=== PATIENT | male | born 1945 | race Asian ===

== ENCOUNTER 2017-07-16 12:24 | Inpatient (IN) | payer MEDICARE, MEDICAID ==
--- NOTE | 2017-07-16 12:30 | ED Physician Chart ---
ED Chief Complaint/HPI - Patient Information Date Seen:: 07/16/17 Time Seen:: 12:25 Chief Complaint:: Dyspnea with lightheadedness earlier. History of Present Illness:: Brought in by private auto with his for the above reason. Pt denies any chest pain, BRONSON, or other bodily pain. No palpitation. No fever or cough. No syncope. The entire episode lasted for about 15 minutes. Allergies:: [place]. Vitals:: see Nurse Note. Historian:: Patient, Family Member () Family MD/PCP:: Dr. Guzman LMP:: N/A. Review:: Nurse's Note Reviewed ED Review of Systems - Review of Systems General/Constitutional: No fever, No chills, Weight loss, No weight loss, No weakness, No edema Skin: No rash, No bruising Head: No headache, Light headed (transient) Eyes: No loss of vision, No pain ENT: No nasal drainage, No sore throat Neck: No neck pain, No swelling, No thyromegaly, No mass noted Cardio Vascular: No chest pain, No palpitations, No PND, No orthopnea, No edema Pulmonary: SOB (transient), No cough, No wheezing GI: No nausea, No vomiting, No diarrhea, No pain G/U: No dysuria, No frequency, No hematuria Musculoskeletal: No bone or joint pain Psychiatric: No prior psych history Hematopoietic: No bruising, No lymphadenopathy Allergic/Immuno: No urticaria, No angioedema Neurological: No syncope, No focal symptoms, No weakness, No paresthesia, No headache, No dizziness, No confusion, No vertigo ED Past Medical History - Past Medical History Past Medical History: HTN, Dyslipidemia, Other (cardiomyopathy.) Family History: Heart disease (bother), Diabetes Melitus (father), HTN (father) Social History: Smoker (1/2 ppd. Pt has been informed about health risks associated with tobacco use and has been advised to quit. Pt has been encouraged to enroll in a smoking cessation program. Pt acknowledges understanding.), Alcohol (occasional.), No Drug Use, , Other (lives with .) Employment:: retired. Surgical History: Appendectomy (about 39 y/a.) Psychiatricy History: None Medication: Reviewed Family Medical History - Family Member Mother History Unknown: Yes ED Physical Exam - Physical Examination General/Constitutional: Awake, Well-developed, well-nourished, Alert, No distress, GCS 15, Non-toxic appearing Other Gen/Cons comments:: Breathes comfortably, speaks clearly, and interacts normally. Head: Atraumatic Eyes: Lids, conjuctiva normal, PERRL, EOMI Skin: Nl inspection, No rash, No ecchymosis, Well hydrated, No lymphadenopathy ENMT: External ears, nose nl, Oropharynx nl Neck: Nontender, Full ROM w/o pain, No JVD, No nuchal rigidity, No mass, No stridor Respiratory: Nl effort/Exclusion, Clear to Auscultation, No Wheeze/Rhonchi/Rales Cardio Vascular: RRR, No murmur, gallop, rubs GI: No tenderness/rebounding/guarding, No organomegaly, Normal BS's, Nondistended : No CVA tenderness Extremities: No tenderness or effusion, Full ROM, No edema Neuro/Psych: Alert/oriented (oriented x 3.), Judgement/insight normal, Mood normal, No focal deficits ED Labs/Radiology/EKG Results - Lab Results Results: Laboratory Tests 07/16/17 07/16/17 07/16/17 12:47 12:47 12:47 WBC 10.1 RBC 4.15 Hgb 12.4 Hct 37.9 L MCV 91.3 MCH 29.9 MCHC Differential 32.8 RDW 13.0 Plt Count 200 MPV 7.5 Neutrophils % [employer]IC Band Neutrophils % 3 Lymphocytes % E[employer]IC ENGINE MECHANIC Monocytes % [employer]IC ENGINE MECHANIC Eosinophils % E[employer]IC ENGINE MECHANIC Basophils % [employer] ENGINE MECH[employer]IC Neutrophils (Manual) 82 H Lymphocytes 5 L Monocytes 9 Eosinophils 1 Platelet Estimate ADEQUATE Platelet Morphology GIANT PLATELETS SEEN PT 10.7 INR 1.03 PTT (Actin FS) 24.8 L Sodium 132 L Potassium 4.0 Chloride 97 L Carbon Dioxide 26.6 Anion Gap 12.4 BUN 23 Creatinine 1.6 H Est GFR ( Amer) TNP Est GFR (Non-Af Amer) TNP BUN/Creatinine Ratio 14.4 Glucose 222 H Calcium 9.9 Total Bilirubin 1.2 H AST 13 ALT 11 Alkaline Phosphatase 46 Creatine Kinase 89 Troponin I Total Protein 7.1 Albumin 4.0 L Globulin 3.1 Albumin/Globulin Ratio 1.3 07/16/17 12:47 WBC RBC Hgb Hct MCV MCH MCHC Differential RDW Plt Count MPV Neutrophils % Band Neutrophils % Lymphocytes % Monocytes % Eosinophils % Basophils % Neutrophils (Manual) Lymphocytes Monocytes Eosinophils Platelet Estimate Platelet Morphology PT INR PTT (Actin FS) Sodium Potassium Chloride Carbon Dioxide Anion Gap BUN Creatinine Est GFR ( Amer) Est GFR (Non-Af Amer) BUN/Creatinine Ratio Glucose Calcium Total Bilirubin AST ALT Alkaline Phosphatase Creatine Kinase Troponin I 0.01 Total Protein Albumin Globulin Albumin/Globulin Ratio Urinalysis is pending. - Radiology Results Results: PCXR: Based on my interpretation, no acute cardiopulmonary disease. Official report is pending. - EKG Interpretations EKG Time:: 12:36 Rate & Rhythm: NSR with VR 68 Comments:: NSSTT changes. cardiac monitor: NSR with VR 70. No ectopy. ED Septic Shock - . Is Septic Shock (SBP<90, OR Lactate>4 mmol\L) present?: No ED Reassessment (Disposition) - Reassessment Reassessment:: 1355 Pt has been repeatedly evaluated. Pt remains stable and comfortable. Remaining lab results just became available. EKG, CXR, and lab findings have been reviewed with pt. Management plan has been discussed. 1402 Case was discussed with Dr. Rollins with pertinent H & P, EKG, CXR and available lab findings reviewed. Pt is to be admitted to Telemetry [facility] under his care. Reassessment Condition:: Improved - Diagnosis Diagnosis:: Pre-syncope with transient dyspnea with lightheadedness. Consider cardiac in etiology. Stable and currently asymptomatic. Diabetes mellitus. Mild renal insuffficiency. HTN Dyslipidemia. - Aftercare/Follow up Instructions Aftercare/Follow-Up Instructions:: Counseled pt & family regarding lab results/ diagnosis & need follow up - Patient Disposition Admitted to:: Telemetry Condition at Disposition:: Stable, Improved
[2017-07-16 12:55] LABS: HEMATOCRIT 37.9 % (41.0-60); HEMOGLOBIN 12.4 gm/dL (12-16); MEAN CELL VOLUME 91.3 fl (80-99); MEAN CORPUSCULAR HEMOGLOBIN 29.9 pg (27.0-31.0); MEAN CORPUSCULAR HGB CONC 32.8 pg (28.0-36.0); MEAN PLATELET VOLUME 7.5 fl; PLATELET COUNT 200 Th/cmm (150-400); RED BLOOD COUNT 4.15 Mil/cmm (3.80-5.80); WHITE BLOOD COUNT 10.1 Th/cmm (4.8-10.8)
[2017-07-16 13:11] LABS: INR 1.03 (0.5-1.4); PROTHROMBIN TIME (TEST) 10.7 SECONDS (9.5-11.5)
[2017-07-16 13:14] LABS: ALB/GLOB RATIO 1.3 (1.0-1.8); ALKALINE PHOSPHATASE 46 U/L (34-104); ANION GAP 12.4 (7.0-16.0); BILIRUBIN,TOTAL 1.2 mg/dL (0.3-1.0); BUN - UREA NITROGEN 23 mg/dL (7-25); CALCIUM SERUM 9.9 mg/dL (8.6-10.3); CARBON DIOXIDE 26.6 mEq/L (21.0-31.0); CHLORIDE 97 mEq/L (98-107); CREATININE - SERUM 1.6 mg/dL (0.7-1.3); CREATININE KINASE 89 U/L (30-223); GLUCOSE 222 mg/dL (70-105); SGOT 13 U/L (13-39); SGPT/ALT 11 U/L (7-52); SODIUM SERUM 132 mEq/L (136-145); TOTAL PROTEIN,SERUM 7.1 gm/dL (6.0-8.3)
[2017-07-16 13:37] LABS: MANUAL DIFF REQUIRED? YES
[2017-07-16 13:38] LABS: BAND NEUTROPHILE 3 % (0-10); EOSINOPHIL 1 % (0-5); LYMPHOCYTE 5 % (20-50); MONOCYTE 9 % (2-10); NEUTROPHILS 82 % (40-80); PLATELET ESTIMATE ADEQUATE (NORMAL); PLATELET MORPHOLOGY GIANT PLATELETS SEEN (NORMAL); TOTAL CELLS COUNTED 100
[2017-07-16] MEDS ORDERED: Aspirin 81mg Chewable Tab PO STA (14:08)
[2017-07-16] MEDS ORDERED: Aspirin 81mg Chewable Tab ONE (14:13)
[2017-07-16 18:04] LABS: URINE MICROSCOPIC INDICATED? YES; URINE SOURCE MIDSTREAM
[2017-07-16 18:06] LABS: URINE BILIRUBIN NEGATIVE (NEGATIVE); URINE BLOOD MODERATE (NEGATIVE); URINE GLUCOSE (UA) 500 mg/dL (NEGATIVE); URINE KETONE NEGATIVE (NEGATIVE); URINE LEUKOCYTE ESTERASE NEGATIVE (NEGATIVE); URINE NITRATE NEGATIVE (NEGATIVE); URINE PROTEIN NEGATIVE (NEGATIVE); URINE UROBILINOGEN 0.2 E.U./dL (0.2 - 1.0)
[2017-07-16 18:16] LABS: URINE CLARITY SLIGHTLY HAZY (CLEAR); URINE COLOR YELLOW
[2017-07-16 18:17] LABS: URINE BACTERIA NONE SEEN /hpf (NONE SEEN); URINE EPITHELIAL CELLS RARE /lpf (FEW); URINE WBC 0-2 /hpf (0-5)
[2017-07-16 19:35] LABS: A1C % 9.1 % (4.0-6.0)
[2017-07-16] MEDS ORDERED: Sodium Chloride 0.9% 1,000 ML IV SCH (21:00)
[2017-07-16] MEDS: INSULIN ASPART SLIDING SCALE 100 UNITS/ML UNIT SUBQ SCH (22:02)
[2017-07-16] MEDS: Sodium Chloride 0.9% 1,000 ML IV SCH (22:03)
[2017-07-17 02:15] VITALS: BP 134/56
[2017-07-17 05:40] LABS: % BASOPHILS 0.8 % (0.0-2.0); % EOSINOPHILS 0.8 % (0.0-5.0); % LYMPHOCYTES 10.2 % (20.0-50.0); % MONOCYTES 9.8 % (2.0-10.0); % NEUTROPHILS 78.4 % (40.0-80.0); BASOPHILE ABSOLUTE 0.1 Th/cumm (0-0.2); EOSINOPHILE ABSOLUTE 0.1 Th/cmm (0.1-0.4); HEMATOCRIT 36.6 % (41.0-60); HEMOGLOBIN 11.8 gm/dL (12-16); LYMPHOCYTE ABSOLUTE 0.9 Th/cmm (1.5-3.0); MEAN CELL VOLUME 90.7 fl (80-99); MEAN CORPUSCULAR HEMOGLOBIN 29.3 pg (27.0-31.0); MEAN CORPUSCULAR HGB CONC 32.3 pg (28.0-36.0); MEAN PLATELET VOLUME 8.3 fl; MONOCYTE ABSOLUTE 0.9 Th/cmm (0.3-1.0); NEUTROPHILE ABSOLUTE 7.3 Th/cmm (1.8-8.0); PLATELET COUNT 190 Th/cmm (150-400); RED BLOOD COUNT 4.03 Mil/cmm (3.80-5.80); RED CELL DISTRIBUTION WIDTH 12.7 % (11.5-20.0); WHITE BLOOD COUNT 9.3 Th/cmm (4.8-10.8)
[2017-07-17 05:59] LABS: ALB/GLOB RATIO 1.2 (1.0-1.8); ALBUMIN 3.8 gm/dL (4.2-5.5); ALKALINE PHOSPHATASE 45 U/L (34-104); ANION GAP 13.4 (7.0-16.0); BILIRUBIN,TOTAL 0.9 mg/dL (0.3-1.0); BUN - UREA NITROGEN 24 mg/dL (7-25); CALCIUM SERUM 9.4 mg/dL (8.6-10.3); CARBON DIOXIDE 25.7 mEq/L (21.0-31.0); CHLORIDE 97 mEq/L (98-107); CREATININE - SERUM 1.4 mg/dL (0.7-1.3); GLUCOSE 164 mg/dL (70-105); POTASSIUM SERUM 4.1 mEq/L (3.5-5.1); SGOT 11 U/L (13-39); SGPT/ALT 10 U/L (7-52); SODIUM SERUM 132 mEq/L (136-145); TOTAL PROTEIN,SERUM 6.9 gm/dL (6.0-8.3)
--- NOTE | 2017-07-17 07:30 | Diagnostic Imaging Report ---
Portable chest x-ray HISTORY: Shortness of breath Allowing for portable technique, the heart size is normal. Atherosclerotic calcification seen in the aorta. No focal pulmonary processes. Degenerative changes seen to the spine. IMPRESSION: 1. No acute abnormalities 2. Atherosclerotic vascular changes
[2017-07-17] MEDS: INSULIN ASPART SLIDING SCALE 100 UNITS/ML UNIT SUBQ SCH ×4 (07:35→22:00)
[2017-07-17] MEDS: Atorvastatin Calcium 10 MG TAB PO SCH (08:16)
[2017-07-17] MEDS ORDERED: VALSARTAN PO SCH (09:00)
[2017-07-17] MEDS ORDERED: METFORMIN HCL PO SCH (09:00)
[2017-07-17] MEDS ORDERED: [UNRECOGNIZED DRUG - OTHER] PO SCH (09:00)
[2017-07-17] MEDS ORDERED: HYDROCHLOROTHIAZIDE PO SCH (09:00)
[2017-07-17] MEDS ORDERED: SITAGLIPTIN PHOS PO SCH (09:00)
[2017-07-17] MEDS ORDERED: [UNRECOGNIZED DRUG - OTHER] PO SCH (09:00)
--- NOTE | 2017-07-17 09:17 | History and Physical ---
History of Present Illness - HPI Chief Complaint: Near syncope HPI: Patient refer that he had near syncope (light head) episode last x 15 minutes. Vital Signs: Last Vital Signs Temp 97.2 F 07/17/17 08:58 Pulse 67 07/17/17 08:58 Resp 16 07/17/17 08:58 BP 150/76 07/17/17 08:58 Pulse Ox 99 07/17/17 08:58 Past Medical History Cardiovascular: Report: CAD, HTN Pulmonary: Report: No Pertinent Hx DATA CENTER ARCHITECT: Report: No Pertinent Hx GI: Report: No Pertinent Hx Psych: Report: No Pertinent Hx Musculoskeletal: Report: Other (Pain in left first finger) Rheumatologic: Report: No pertinent Hx Infectious Disease: Report: No Pertinent Hx Renal/: Report: Chronic Renal Insuff Endocrine: Report: Diabetes Dermatology: Report: No Pertinent Hx - Past Surgical History Past Surgical History: No pertinent Hx Family Medical History - Family Member Mother History Unknown: Yes Father Name:: Jessica Bright Ethnicity: Non- Living Status: Hx Family Cancer: No Hx Family Coronary Artery Disease: No Hx Family Congestive Heart Failure: No Hx Family Hypertension: No Hx Family Stroke: No Hx Family Diabetes: Yes Hx Family Seizures: No Hx Family Dementia: No Hx Family AIDS: No Hx Family HIV: No Hx Family COPD: No Hx Family Hepatitis: No Hx Family Psychiatric Problems: No Hx Family Tuberculosis: No Social History Smoke: No Alcohol: None Drugs: None Lives: With Family Domestic Violence: Negative - Medications Home Medications: Home Medication Medication Instructions Recorded Type Amlodipine Besylate 5 mg PO BID 07/16/17 History Atorvastatin Calcium [Lipitor] 40 mg PO DAILY 07/16/17 History Glimepiride [Amaryl*] 2 mg PO BID 07/16/17 History Sitagliptin Phos/Metformin HCl 1 tab PO BID 07/16/17 History [Janumet 50-1,000 mg Tablet] Valsartan/Hydrochlorothiazide 1 tab PO BID 07/16/17 History [Valsartan-Hctz 320-25 mg Tab] - Allergies Allergies/Adverse Reactions: Allergies Allergy/AdvReac Type Severity Reaction Status Date / Time peach Allergy Verified 07/16/17 12:35 Review of Systems - Review of Systems Constitutional: Report: Weakness Eyes: Report: No Significant ENT: Report: Other (Light headache) Respiratory: Report: No Significant Cardiovascular: Report: No Significant Gastrointestinal: Report: No Significant Genitourinary: Report: No Significant Musculoskeletal: Report: No Significant Skin: Report: No Significant Neurological: Report: Weakness Physical Exam - Physical Exam HEENT: Report: Ears Nose Throat within normal limits Neck: Report: Other (Pain in back of neck) Cardiovascular Systems: Report: Regular, Rate and Rhythm Respiratory: Report: Breath Sounds are within normal limits Abdomen: Report: Non-tender to palpation Back: Report: Inspection of back is within normal limits. Extremities: Report: Non-tender to palpation. Skin: Report: Color of skin is within normal limits Neuro/Psych: Report: Mood affect is within normal limits - Lab Results All Lab Results last 24 hours: Laboratory Results - last 24 hr 07/16/17 07/16/17 07/17/17 17:35 Unknown 04:45 WBC 9.3 RBC 4.03 Hgb 11.8 L Hct 36.6 L MCV 90.7 MCH 29.3 MCHC Differential 32.3 RDW 12.7 Plt Count 190 MPV 8.3 Neutrophils % 78.4 Lymphocytes % 10.2 L Monocytes % 9.8 Eosinophils % 0.8 Basophils % 0.8 Sodium Potassium Chloride Carbon Dioxide Anion Gap BUN Creatinine Est GFR ( Amer) Est GFR (Non-Af Amer) BUN/Creatinine Ratio Glucose POC Glucose Hemoglobin A1c % 9.1 H Calcium Total Bilirubin AST ALT Alkaline Phosphatase B-Natriuretic Peptide Total Protein Albumin Globulin Albumin/Globulin Ratio Urine Source MIDSTREAM Urine Color YELLOW Urine Clarity SLIGHTLY HAZY Urine pH 6.0 Ur Specific Law[place] 1.015 Urine Protein NEGATIVE Urine Glucose (UA) 500 H Urine Ketones NEGATIVE Urine Blood MODERATE H Urine Nitrate NEGATIVE Urine Bilirubin NEGATIVE Urine Urobilinogen 0.2 Ur Leukocyte Esterase NEGATIVE Urine RBC 2-5 H Urine WBC 0-2 Ur Epithelial Cells RARE Urine Bacteria NONE SEEN 07/17/17 07/17/17 07/17/17 04:45 04:45 06:19 WBC RBC Hgb Hct MCV MCH MCHC Differential RDW Plt Count MPV Neutrophils % Lymphocytes % Monocytes % Eosinophils % Basophils % Sodium 132 L Potassium 4.1 Chloride 97 L Carbon Dioxide 25.7 Anion Gap 13.4 BUN 24 Creatinine 1.4 H Est GFR ( Amer) TNP Est GFR (Non-Af Amer) TNP BUN/Creatinine Ratio 17.1 Glucose 164 H POC Glucose 185 H Hemoglobin A1c % Calcium 9.4 Total Bilirubin 0.9 AST 11 L ALT 10 Alkaline Phosphatase 45 B-Natriuretic Peptide 49.1 Total Protein 6.9 Albumin 3.8 L Globulin 3.1 Albumin/Globulin Ratio 1.2 Urine Source Urine Color Urine Clarity Urine pH Ur Specific Law[place] Urine Protein Urine Glucose (UA) Urine Ketones Urine Blood Urine Nitrate Urine Bilirubin Urine Urobilinogen Ur Leukocyte Esterase Urine RBC Urine WBC Ur Epithelial Cells Urine Bacteria - Assessment Assessment: Current Active Problems Problem Status Onset WEAKNESS, DIZZINESS, MALAISE, MYALGIA Acute Patient is awake, alert, calm, complaining of headache. Dx: Near syncope, CKD, HTN, DM, Dyslipemia. - Plan Plan: Patient is in IV NS, pain control, home meds. Consult with Cardio and Nephro requested. Head CT order, Echocardiogram order. Will continue to monitor.
[2017-07-17] MEDS ORDERED: Potassium Chloride 20 mEq ER Tab PO ONE (11:00)
--- NOTE | 2017-07-17 11:37 | Diagnostic Imaging Report ---
CT scan of the brain without intravenous contrast HISTORY: Syncope Total DLP equals 581 CTDI equals 32.1 Axial sections were obtained from the base of the skull to the vertex. There is a normal ventricular system size for age. Mild hypodensity is seen within the supratentorial white matter regions without mass effect. The findings may be associated with chronic small vessel ischemic disease. No acute intracerebral hemorrhage. Again, no mass effect or shift of midline structures. No extra-axial masses or abnormal fluid collections. Atherosclerotic calcification seen in the region of the vertebral and basilar arteries at the base of the skull. IMPRESSION: 1. No acute abnormalities 2. Supratentorial white matter changes. The findings may be associated with chronic small vessel ischemic disease. If necessary, an MRI exam may provide additional assessment and evaluation. 3. Atherosclerotic vascular changes
[2017-07-17] MEDS: Sodium Chloride 0.9% 1,000 ML IV SCH (14:20)
--- NOTE | 2017-07-17 18:19 | Consultation ---
DATE OF CONSULTATION: 07/17/[address] Rollins. HISTORY OF PRESENT ILLNESS: This 71-year-old oriental male patient who had been complaining of dizziness, near syncope. Following this, the patient came to the Emergency Room and the patient is admitted. PAST MEDICAL HISTORY: Hypertension, diabetes, hyperlipidemia, and diabetic CKD stage II. FAMILY HISTORY: Unremarkable. SOCIAL HISTORY: No history of smoking or alcohol abuse. ALLERGIES: No known allergies. PHYSICAL EXAMINATION: VITAL SIGNS: Blood pressure 150/80, at the present time 120/80; pulse 70; respirations 20. HEAD: Normocephalic. No lumps or bumps. EYES: Pupils equal, reactive to light. Fundi showing AV nicking, sclerae white, conjunctivae pink. NECK: Carotid 2+. Normal upstroke. JVD flat. Thyroid not palpable. Lymph nodes not palpable. CHEST: Shows increased AP diameter. No kyphosis, scoliosis. LUNGS: Bilateral bronchovesicular breath sounds. HEART: PMI fifth intercostal space with lateral to midclavicular line. S1, S2. No S3, S4, soft systolic murmur. ABDOMEN: Soft. Liver, spleen not palpable. No organomegaly. Bowel sounds active. NEUROLOGIC: The patient is dizzy. CLINICAL IMPRESSION: 1. Vertigo. 2. Diabetes mellitus type 2. 3. Hypertension. 4. Diabetic chronic kidney disease, stage II. 5. Hyperlipidemia. PLAN: The patient to get echocardiogram and watch on telemetry bed. JOB# [id number]
[2017-07-18 05:31] LABS: % EOSINOPHILS 0.5 % (0.0-5.0); % LYMPHOCYTES 9.5 % (20.0-50.0); % MONOCYTES 10.6 % (2.0-10.0); % NEUTROPHILS 78.4 % (40.0-80.0); BASOPHILE ABSOLUTE 0.1 Th/cumm (0-0.2); HEMATOCRIT 38.2 % (41.0-60); HEMOGLOBIN 12.3 gm/dL (12-16); LYMPHOCYTE ABSOLUTE 0.9 Th/cmm (1.5-3.0); MEAN CELL VOLUME 90.9 fl (80-99); MEAN CORPUSCULAR HEMOGLOBIN 29.4 pg (27.0-31.0); MEAN CORPUSCULAR HGB CONC 32.3 pg (28.0-36.0); MEAN PLATELET VOLUME 8.3 fl; NEUTROPHILE ABSOLUTE 7.6 Th/cmm (1.8-8.0); PLATELET COUNT 224 Th/cmm (150-400); RED CELL DISTRIBUTION WIDTH 12.8 % (11.5-20.0); WHITE BLOOD COUNT 9.6 Th/cmm (4.8-10.8)
[2017-07-18 05:43] LABS: ALB/GLOB RATIO 1.1 (1.0-1.8); ALBUMIN 3.6 gm/dL (4.2-5.5); ALKALINE PHOSPHATASE 48 U/L (34-104); ANION GAP 12.1 (7.0-16.0); BILIRUBIN,TOTAL 0.9 mg/dL (0.3-1.0); BUN - UREA NITROGEN 26 mg/dL (7-25); CALCIUM SERUM 9.4 mg/dL (8.6-10.3); CARBON DIOXIDE 24.8 mEq/L (21.0-31.0); CHLORIDE 95 mEq/L (98-107); CREATININE - SERUM 1.3 mg/dL (0.7-1.3); GLUCOSE 186 mg/dL (70-105); POTASSIUM SERUM 3.9 mEq/L (3.5-5.1); SGOT 13 U/L (13-39); SGPT/ALT 13 U/L (7-52); SODIUM SERUM 128 mEq/L (136-145); TOTAL PROTEIN,SERUM 6.9 gm/dL (6.0-8.3)
--- NOTE | 2017-07-18 07:51 | Diagnostic Imaging Report ---
Left hand (3 views) HISTORY: Pain There is narrowing of all DIP and PIP joints. Deformity associated with narrowing and hypertrophic bone formation seen about the first carpal metacarpal joint region. No definite acute bony abnormality is. No fractures. IMPRESSION: 1. Findings consistent with osteoarthritis 2. No definite acute abnormalities In the presence of recent trauma and persistent symptoms, a repeat radiograph in 5-7 days may be helpful for detection of a subtle or occult fracture.
[2017-07-18] MEDS ORDERED: Diclofenac 75 mg Tab PO SCH (08:00)
--- NOTE | 2017-07-18 08:30 | Discharge Summary ---
General Discharge Summary - Discharge Summary Date of Admission: 07/16/17 Admitting Diagnosis: Near syncope, CKD, HTN, DM, Dyslipemia Patient Problems: All Active Problems WEAKNESS, DIZZINESS, MALAISE, MYALGIA (Acute) Discharge Date: 07/18/17 Discharge Diagnosis: Vertigo, Near syncope, CKD, HTN, DM, Dyslipemia Laboratory Findings: Laboratory Results - last 24 hr 07/17/17 07/17/17 07/17/17 04:45 16:20 21:11 WBC RBC Hgb Hct MCV MCH MCHC Differential RDW Plt Count MPV Neutrophils % Lymphocytes % Monocytes % Eosinophils % Basophils % Sodium Potassium Chloride Carbon Dioxide Anion Gap BUN Creatinine Est GFR ( Amer) Est GFR (Non-Af Amer) BUN/Creatinine Ratio Glucose POC Glucose 168 H 215 H Uric Acid 7.4 Calcium Total Bilirubin AST ALT Alkaline Phosphatase Total Protein Albumin Globulin Albumin/Globulin Ratio 07/18/17 07/18/17 04:35 04:35 WBC 9.6 RBC 4.20 Hgb 12.3 Hct 38.2 L MCV 90.9 MCH 29.4 MCHC Differential 32.3 RDW 12.8 Plt Count 224 MPV 8.3 Neutrophils % 78.4 Lymphocytes % 9.5 L Monocytes % 10.6 H Eosinophils % 0.5 Basophils % 1.0 Sodium 128 L Potassium 3.9 Chloride 95 L Carbon Dioxide 24.8 Anion Gap 12.1 BUN 26 H Creatinine 1.3 Est GFR ( Amer) TNP Est GFR (Non-Af Amer) TNP BUN/Creatinine Ratio 20.0 Glucose 186 H POC Glucose Uric Acid Calcium 9.4 Total Bilirubin 0.9 AST 13 ALT 13 Alkaline Phosphatase 48 Total Protein 6.9 Albumin 3.6 L Globulin 3.3 Albumin/Globulin Ratio 1.1 Hospital Course: Patient responded to treatment, Creatinine become normal, No more vertigo. Treatment: Patient received IV NS, Continue with Home meds. he was seen by Cardio, Head CT shoes chronic vascular disease. Disposition: PT DISCHARGED HOME Home Medications: Home Medication Medication Instructions Recorded Type Amlodipine Besylate 5 mg PO BID 07/16/17 History Atorvastatin Calcium [Lipitor] 40 mg PO DAILY 07/16/17 History Glimepiride [Amaryl*] 2 mg PO BID 07/16/17 History Sitagliptin Phos/Metformin HCl 1 tab PO BID 07/16/17 History [Janumet 50-1,000 mg Tablet] Valsartan/Hydrochlorothiazide 1 tab PO BID 07/16/17 History [Valsartan-Hctz 320-25 mg Tab] Inpatient Medications: Current Medications Amlodipine Besylate (Norvasc) 5 mg PO BID [facility] Stop: 09/15/17 08:59 Last Admin: 07/17/17 16:45 Dose: 5 mg Atorvastatin Calcium (Lipitor) 40 mg PO DAILY [facility] [place] Stop: 09/15/17 08:59 Last Admin: 07/17/17 08:16 Dose: 40 mg Diclofenac Sodium (Voltaren) 75 mg PO BIDWM [facility] [place] Stop: 09/16/17 07:59 Glimepiride (Amaryl) 2 mg PO BID [facility] [place] Stop: 09/15/17 08:59 Last Admin: 07/17/17 16:13 Dose: 2 mg Hydrochlorothiazide (Hctz) 25 mg PO BID [facility] [place] Stop: 09/15/17 08:59 Last Admin: 07/17/17 16:14 Dose: 25 mg Sodium Chloride (Nacl 0.9%) 1,000 mls @ 75 mls/hr IV .[id number] [facility] [place] Stop: 09/14/17 21:14 Last Admin: 07/17/17 14:20 Dose: 75 mls/hr Insulin Aspart (Novolog Insulin Sliding Scale) 0 units SUBQ ACHS [facility] [place] PRN Reason: Protocol Stop: 09/14/17 20:59 Last Admin: 07/17/17 22:00 Dose: 4 units Metformin HCl (Glucophage) 1,000 mg PO BIDAC [facility] [place] Stop: 09/15/17 07:29 Last Admin: 07/17/17 16:14 Dose: 1,000 mg Sitagliptin Phosphate (Januvia) 50 mg PO BIDAC [facility] [place] Stop: 09/15/17 07:29 Last Admin: 07/17/17 16:13 Dose: 50 mg Tramadol HCl (Ultram) 50 mg PO Q6HR PRN PRN Reason: Pain (Moderate) Stop: 09/14/17 21:14 Last Admin: 07/17/17 20:12 Dose: 50 mg Valsartan (Diovan) 320 mg PO BID [facility] [place] Stop: 09/15/17 08:59 Last Admin: 07/17/17 16:12 Dose: 320 mg Activity: As Tolerated Consults and Follow-Up: LEOBARDO ROSE [Other] not on staff,PCP is [Primary Care Provider] - Consulting Speciality: Other (PCP)
[2017-07-18] MEDS: Atorvastatin Calcium 10 MG TAB PO SCH (08:49)
--- NOTE | 2017-07-18 10:42 | Diagnostic Imaging Report ---
Bilateral carotid Doppler ultrasound exam HISTORY: Syncope Sonographic sector images were obtained to the carotid bifurcation regions bilaterally. Associated Doppler data was obtained. The exam of the right side demonstrates generalized intimal thickening throughout the bifurcation region. Multifocal atherosclerotic plaque is noted within the common carotid artery region resulting in approximate 25-30% narrowing. Mild plaque also noted in the carotid bulb and within the proximal portion of the right internal carotid artery resulting in approximate 20% narrowing. Antegrade vertebral artery flow. Velocities and flow ratios are normal (ICC/CCA equals 1.4). The exam of the left side demonstrates generalized intimal thickening throughout the bifurcation region. Focal somewhat irregular atherosclerotic plaque is noted in the common carotid artery resulting in 60-70% narrowing. Associated increase in velocity seen. However, the ICA/CCA flow ratio is normal (0.4). Antegrade vertebral artery flow. IMPRESSION: 1. Evidence of moderate bilateral atherosclerotic changes somewhat more pronounced within the proximal portion of the left common carotid artery and proximal portion of the right common carotid artery. A CT angiographic study would provide additional detail and assessment.
--- NOTE | 2017-07-18 13:17 | Cardiology ---
07/17/2017 PROCEDURE: Echocardiogram. PATIENT OF: Dr. Rollins. M-MODE ECHOCARDIOGRAM: Mitral valve; anterior leaflet of mitral valve shows normal excursion, EF velocity. Posterior leaflet of the mitral valve shows normal excursion. Left ventricular posterior shows increased thickness, normal excursion. Interventricular septum shows increased thickness, normal excursion, hypertrophy of the left ventricle, ejection fraction 50%. Left atrium normal. Aortic root shows normal dimension, normal excursion of aortic leaflets. CONCLUSION: Hypertrophy of the left ventricle, ejection fraction 50%. 2D echo on the same patient, long axis view showed normal sized left ventricle with hypertrophy of the left ventricle. Left atrium normal. Aortic root shows normal dimension, normal excursion of aortic leaflets. Short axis view of mitral valve normal. Short axis view of aortic valve normal. Apical four chamber view showed normal sized left ventricle with hypertrophy of the left ventricle. Left atrium normal. Right ventricular cavity, right atrium normal. No pericardial effusion. CONCLUSION: Hypertrophy of the left ventricle, ejection fraction 50%. Doppler study shows mild mitral regurgitation, moderate aortic regurgitation. Pressure half time of 1440 milliseconds. CONCLUSION: Hypertrophy of the left ventricle, ejection fraction 50%, moderate aortic regurgitation, mild mitral regurgitation. JOB# [id number]
== END 2017-07-18 12:20 | disposition home or self-care (01) | DRG 641 ==
LOC: ER 12:24 → TELE 14:05
PROVIDERS: ADMIT General Practice; ATTEND General Practice
DX: E87.1 Hypo-osmolality and hyponatremia (principal); N17.9 Acute kidney failure, unspecified; I42.9 Cardiomyopathy, unspecified; R42 Dizziness and giddiness; I12.9 Hypertensive chronic kidney disease with stage 1 through stage 4 chronic kidney disease, or unspecified chronic kidney disease; R55 Syncope and collapse; E11.22 Type 2 diabetes mellitus with diabetic chronic kidney disease; E78.5 Hyperlipidemia, unspecified; F17.210 Nicotine dependence, cigarettes, uncomplicated; I25.10 Atherosclerotic heart disease of native coronary artery without angina pectoris; N18.2 Chronic kidney disease, stage 2 (mild); I99.9 Unspecified disorder of circulatory system; Z83.3 Family history of diabetes mellitus; Z82.49 Family history of ischemic heart disease and other diseases of the circulatory system; Z90.49 Acquired absence of other specified parts of digestive tract
CPT/HCPCS: 36415-UA; 70450-TC; 71045-TC; 73130-TC-LT; 80053-TC; 81001-TC; 82550-TC; 82948-90; 83036-90; 83880-TC; 84484-TC; 84550-TC; 85007-TC; 85025-TC; 85027-TC; 85610-TC; 87086-90; 93005; 93880-TC; J1815; J7030; Z7610